=== PATIENT | female | born 2000 | race Caucasian/White ===

== ENCOUNTER 2025-02-05 15:18 | Outpatient (CLI) | payer BC, SELFPAY ==
[2025-02-05 15:44] LABS: Hematocrit 40.7 % (37.0-47.0); Hemoglobin 14.0 g/dL (12.0-15.0); Mean Corpuscular HGB Conc 34.4 g/dl (32-36); Mean Corpuscular Hemoglobin 29.6 pg (26-34); Mean Corpuscular Volume 86.0 fl (80-100); Platelet Count Result 256 k/mm3 (150-375); Red Blood Count 4.73 M/mm3 (4.2-5.4); White Blood Count 13.0 K/mm3 (4.5-10.0)
[2025-02-05 16:27] LABS: Syphilis IgG/IgM Antibody Non-Reactive (Nonreactive)
[2025-02-05 16:30] LABS: Hepatitis B Surface Antigen Negative (Negative)
[2025-02-05 16:39] LABS: HIV 1/2 Ab P24 Ag Result Negative (Negative)
--- OUTSIDE RECORDS SUMMARY | 2025-02-05 17:36 | XMS_ITS | Clinical Summary ---
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 Name Role Phone Provider, Unknown Primary Care Provider Unavaila ble Allergies No known active allergies Medications No known medications Active Problems No known active problems Social History Tobacco Use Types Packs/Day Years Used Date Smoking Tobacco: Never Smokeless Tobacco: Never Tobacco Cessation:Counseling Given: Not Answered Comments No Sex and Gender Information Value Date Recorded Sex Assigned at Not on file Legal Sex Female 3:59 PM CDT Gender Identity Not on file Sexual Orientation Not on file Last Filed Vital Signs Vital Sign Reading Time Taken Comments Blood Pressure 133/86 05/11/2023 9:57 AM CDT Pulse 81 05/11/2023 9:57 AM CDT Temperature 36.8 C (98.2 F) 05/11/2023 9:57 AM CDT Respiratory Rate 16 05/11/2023 9:57 AM CDT Oxygen Saturation 100% 05/11/2023 9:57 AM CDT Inhaled Oxygen Concentration - - Weight 88.5 kg (195 lb) 05/11/2023 9:57 AM CDT Height 170.2 cm (5' 7) 05/25/2022 4:10 PM CDT Body Mass Index 30.54 05/25/2022 4:10 PM CDT Plan of Treatment Health Maintenance Due Date Last Done Comments Hepatitis C Virus (HCV) Screening 2001 Meningococcal B Immunization (1 of 2 - Standard) 2017 Pap Smear 2022 Influenza Immunization (#1) 2024 SARS-COV-2 Immunization ( season) 2024 07/02/2021, 03/18/2020, 02/27/2020 Respiratory Syncytial Virus (RSV) Immunization (Adult) (1 - 1-dose 75+ series) 2076 Hepatitis B Immunization Completed 002, 2001, 2001, Additional history exists Pneumococcal Immunization Combined Aged Out 05/23/2002, 05/23/2002, 2001, Additional history exists No longer eligible based on patient's age to complete this topic Varicella Immunization Completed 09/07/2006, 2002 DTaP/Tdap/Td Immunization Discontinued 2015, 09/27/2012, 09/07/2006, Additional history exists Human Papillomavirus (HPV) Immunization Completed 07/25/2015, 12/20/2012, 09/27/2012 TdaP Immunization Completed 07/25/2015, 09/27/2012 Meningococcal Immunization (ACWY) Completed 10/20/2018, 07/25/2015 Rotavirus Immunization Aged Out No lo nger eligible based on patient's age to complete this topic [place] [address] [address] [place] [address] Care Teams Reaming Machine Operator Relationship Specialty Start Date End Date Provider, Unknown UNKNOWN PCP - General 05/26/22
--- OUTSIDE RECORDS SUMMARY | 2025-02-05 17:36 | XMS_ITS | Patient Health Record ---
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 Name Role Phone Mara Mckeon MD Primary Care Provider Unavailab le [facility]TH[facility] PROVIDER, [facility] Unavailable Self, Referral Unavailable Unavailable Allergies No Known Allergies Reason For Referral No Information Social History Tobacco Use: Social History Observation Description Date Details (start date - stop date) Never Smoker NA - NA Social History Social History Social Info Question Answer Notes Tobacco Use: Are you a: never smoker Additional Details Category Social Info Options Details Social History 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 ; , [employer]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 Alcohol never Recreational drug use No Marital status Single Residence with family 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; 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 Problems Problem Type SNOMED Code ICD Code Onset Dates Problem Status W/U Status Risk Notes Problem Sprain of ankle (23462136) Sprain of unspecified ligament of right ankle, initial encounter (S93.401A) Active confirmed Plan Of Treatment No Information Insurance Providers Payer Name Payer Address Payer Phone Subscriber Number Group Number Insured Name Patient Relationship to Insured Coverage Start Date Coverage End Date [employer] Choice [address] [place], [place] [id number] Elenita Cottrell Self - patient is the insured 1 Medical (General) History Surgical History Surgery Date(Month/Year)
[2025-02-06 07:09] LABS: Varicella-Zoster Ab, IgG Reactive (Non Reactive)
[2025-02-08 15:09] LABS: Parvovirus B19, IgG 0.1 index (0.0-0.8); Parvovirus B19, IgM 0.1 index (0.0-0.8)
== END 2025-02-05 15:19 | disposition home or self-care (01) ==
PROVIDERS: Visit Provider Student in an Organized Health Care Education/Training Program
DX: N91.2 Amenorrhea, unspecified (principal)
CPT/HCPCS: 36415; 84702; 85027; 86593; 86703; 86747; 86762; 86787; 86850; 86900; 86901; 87086; 87340; G0432